=== PATIENT | female | born 1990 | race Caucasian/White ===

== ENCOUNTER 2023-12-21 08:24 | Inpatient (IN) | payer OTHER, SELFPAY ==
[2023-12-21] VITALS (22 sets, daily range): BP systolic 94–132; BP diastolic 55–75; PULSE 54–123; RESP 16–20; TEMP 36.6–37.3; O2SAT 98; BMI 30.2
[2023-12-21 08:11] LABS: Amnisure Rom* POSITIVE
--- NOTE | 2023-12-21 13:28 | P.OBHP_ITS ---
OB - H&P: HPI Labor/Induction History of Present Illness Date Seen: 12/21/23 Chief Complaint: The patient is a 33 year old 1 para 1 at 38+3 weeks gestation by LMP and confirmed with 1st trimester US, who presents with SROM at 0430 this morning. Chief complaint: OB Nonscheduled Narrative: Deann Shore is a 33 year old at 38+3 here with SROM of clear fluid at 0430 this morning. ON presentation to L&D at 0830, she was 1 cm dilated and having mild contractions. She now reports they are stronger and closer together and she is more uncomfortable. She has had an uncomplicated . her GBS is negative, Rh+, rubella immune. She has had anemia during which did not respond to iron infusion, had normal B12 and folic acid levels. last HGB 10.5. History of Present Dating criteria: based on LMP care: good care Ultrasounds: normal 1st trimester US and normal mid trimester US Medical complications: none Labs Blood type: A (+) positive Rubella: immune RPR/VDLR: nonreactive GBS status: negative HBsAG: negative Review of Systems Status of ROS: Reports: 6 or more systems reviewed and unremarkable except as noted in History and below OB - H&P: Exam Physical Exam: Vital signs: Temp Pulse Resp BP 98.4 F 56 L 16 103/66 12/21/23 13:24 12/21/23 12:41 12/21/23 13:24 12/21/23 12:41 Constitutional: Constitutional: no acute distress Routine HEENT Exam: Head: Present atraumatic Eye: Present EOMI and PERRL ENT: Present mucous membranes moist Routine Neck Exam: Neck: Present full ROM Routine Respiratory Exam: Respiratory: Present CTA bilaterally Routine Cardiovascular Exam: Cardiovascular: RRR Comments: no murmur Detailed Labor and Delivery Exam: Patient Gravid: Yes Dilation (cm): 4 Effacement (%): 80 Cervix position: mid Consistency: soft Contraction intensity: Moderate Fetus (Single): Station: 0 Amniotic Membrane Status: SROM Heart Rate Baseline: 140 Monitor Accelerations: Present Monitor Decelerations: None Water/Wastewater Project Manager Variability: Moderate (6-25) Routine Skin Exam: Present intact Routine Neurological Exam: Present alert, oriented X3 and CN II-XII intact OB - Problem Based A/P Additional Plan (1) Term : Status: Acute (2) SROM (spontaneous rupture of membranes): Status: Acute Plan Patient desires water Anticipate Delivery/Labor/Induction Plan Plan: expectant management
[2023-12-21] MEDS: LIDOCAINE 1 % PF 30 ML INJECTION (18:15)
[2023-12-21] MEDS: OXYTOCIN 10 UNIT/ML INJ IM (18:16)
--- NOTE | 2023-12-21 18:44 | W.PM.VAGDEL1 ---
Procedure Procedure Done: Global Delivery monitor: external FHT Route of delivery: (waterbirth) Laceration description: Vaginal - 2nd Degree Delivery repair: Vicryl Estimated blood loss (mL): 425 Anesthesia type: None Disposition: floor Narrative: The patient is a 33 year-old admitted on 12/21/2023 at 38 Weeks, 3 Days gestation for SROM at 0430 on the morning of admission.? Cervical exam on admission was 1 cm/50 % effaced/-1 station with membranes ruptured in vertex presentation.? Contractions were every 5-7 minutes.? heart rate demonstrated baseline 140 bpm with moderate variability, + accelerations, - decelerations; a category 1 tracing.? SROM occurred at 0430 with clear fluid. ? Labor Analgesia:? nitrous ? Pitocin:? post delivery ? Labor onset:? 1500 ? Complete:? 1730 ? Pushing:? 1730 ? heart tones during second stage were presumed category 1, intermittent auscultation due to water . ? At 1753 a viable female infant delivered in vertex OA presentation over intact perineum via spontaneous vaginal delivery.? was placed on maternal abdomen.? Cord was clamped and cut after a 30-60 second delay.? Nose and mouth were bulb suctioned.? weight pending.? 8 at 1 minute and 9 at 5 minutes.? Shoulder dystocia: no.? Nuchal cord: x3. ? Placenta delivered spontaneously and complete at 1803 with a 3 vessel cord. ? Mother and infant were stable after delivery. ? Lacerations:? 2nd degree, vaginal, repaired with 3-0 vicryl suture. ? Blood loss: 425 mL. Blood loss measurement type: EBL ? Sponge and needles counts are correct.
[2023-12-21] MEDS: ACETAMINOPHEN 500 MG TABLET 1000 MG PO (20:50)
[2023-12-21] MEDS: miSOPROStoL 800 MCG/4 TABLET PR (20:51)
[2023-12-22 02:51] VITALS: BP 113/74; PULSE 72; RESP 18; TEMP 36.7; O2SAT 98
[2023-12-22] MEDS: FLUTICASONE PROPIONATE NASAL 1 SPRAY NOSTRIL-B (05:49)
--- NOTE | 2023-12-22 06:34 | PM.OBPNVD1 ---
OB - PN:Subj Subjective Time Seen by Provider: 06:34 Date Seen: 12/22/23 Interval history: pt seen in routine rounds. no concerns. Working on , says right easier then left. +voiding, ambulating, tolerating orals. RN reports lochia as scant. Patient comments OB post-: no complaints status: feeding status: exclusively OB - PN: Obj Exam Physical Exam: Vital signs: Temp Pulse Resp BP Pulse Ox O2 Del Method 98.1 F 72 18 113/74 98 Room Air 12/22/23 02:51 12/22/23 02:51 12/22/23 02:51 12/22/23 02:51 12/22/23 02:51 12/22/23 02:51 Constitutional: Constitutional: no acute distress and cooperative Routine Abdominal Exam: Fundus: Present firm (below umbilicus) OB - PN: Obj Data Labs Labs: Laboratory Results - last 24 hr 12/21/23 07:51 Membrane Rupture POSITIVE OB - PN: A/P Delivery Assessment and Plan (1) Term : Status: Acute (2) SROM (spontaneous rupture of membranes): Status: Resolved Plan Plan: routine care Comments: Doing well. continue work on . will see today. Pt may want to go home tonight if today goes well, will see how today goes with nursing and baby
[2023-12-22 07:08] LABS: Hemoglobin* 10.4 gm/dL (12.0-16.0)
[2023-12-22 07:52] VITALS: BP 109/69; PULSE 68; RESP 18; TEMP 36.7; O2SAT 99
[2023-12-22] MEDS: ACETAMINOPHEN 500 MG TABLET 1000 MG PO ×2 (08:01→17:54)
[2023-12-22] MEDS: DOCUSATE SODIUM 100 MG CAPSULE PO (08:01)
[2023-12-22 13:45] VITALS: BP 100/66; PULSE 68; RESP 16; TEMP 36.7; O2SAT 99
[2023-12-22 17:38] VITALS: BP 103/64; PULSE 75; RESP 16; TEMP 36.8; O2SAT 97
--- NOTE | 2023-12-22 18:05 | PM.OBDSVD1 ---
DS: Providers Provider Time Seen by Provider: 06:34 Date Seen: 12/22/23 Date of admission: 12/21/23 08:24 Primary care physician: Melly Gates MD Admitting Clinician: Melly Gates MD Attending Physician on discharge: Melly Gates MD Date of Discharge: 12/22/23 DS: Diagnosis Discharge Diagnosis (1) Vaginal delivery: Status: Acute (2) Term : Status: Acute Exam Const: Vital Signs, click to edit/add: Vital Signs - 24 hr 12/21/23 18:10 12/21/23 18:11 12/21/23 18:11 Temperature 98.7 F Pulse Rate 81 Pulse Rate [Pulse Oximeter] Respiratory Rate 18 20 Blood Pressure 132/75 Blood Pressure [Le ft Arm] Pulse [facility]xim[facility] 12/21/23 18:26 12/21/23 18:26 12/21/23 18:41 Temperature Pulse Rate 70 86 Pulse Rate [Pulse Oximeter] Respiratory Rate 18 Blood Pressure 110/69 116/58 L Blood Pressure [Le ft Arm] Pulse Oximetry Oxygen Delivery [facility] 12/21/23 18:41 12/21/23 18:56 12/21/23 18:56 Temperature 98.7 F Pulse Rate 85 Pulse Rate [Pulse Oximeter] Respiratory Rate 18 16 Blood Pressure 117/71 Blood Pressure [Le ft Arm] Pulse Oximetry Oxygen Delivery [facility] 12/21/23 18:56 12/21/23 19:11 12/21/23 19:12 Temperature Pulse Rate 123 H Pulse Rate [Pulse Oximeter] Respiratory Rate 18 18 Blood Pressure 114/71 Blood Pressure [Le ft Arm] Pulse Oximetry Oxygen Delivery [facility] 12/21/23 19:26 12/21/23 19:26 12/21/23 19:41 Temperature Pulse Rate 80 73 Pulse Rate [Pulse Oximeter] Respiratory Rate 18 Blood Pressure 113/59 L 115/65 Blood Pressure [Le ft Arm] Pulse Oximetry Oxygen Delivery [facility] 12/21/23 19:41 12/21/23 19:41 12/21/23 19:56 Temperature 98.4 F Pulse Rate 77 Pulse Rate [Pulse Oximeter] Respiratory Rate 16 18 Blood Pressure 105/55 L Blood Pressure [Le ft Arm] Pulse Oximetry Oxygen Delivery [facility] 12/21/23 19:56 12/21/23 20:18 12/21/23 20:19 Temperature Pulse Rate 66 Pulse Rate [Pulse Oximeter] Respiratory Rate 18 18 Blood Pressure 111/59 L Blood Pressure [Le ft Arm] Pulse Oximetry Oxygen Delivery [facility] 12/21/23 23:39 12/22/23 02:51 12/22/23 07:52 Temperature 97.8 F 98.1 F 98.1 F Pulse Rate Pulse Rate [Pulse Oximeter] 99 72 68 Respiratory Rate 20 18 18 Blood Pressure Blood Pressure [Le ft Arm] 94/69 113/74 109/69 Pulse Oximetry 98 98 99 Oxygen Delivery [facility] Room Air Room Air 12/22/23 13:45 12/22/23 17:38 Temperature 98.0 F 98.2 F Pulse Rate Pulse Rate [Pulse Oximeter] 68 75 Respiratory Rate 16 16 Blood Pressure Blood Pressure [Le ft Arm] 100/66 103/64 Pulse Oximetry 99 97 Oxygen Delivery [facility] Room Air Documenting provider has reviewed patient's vital signs: yes Common normals: no apparent distress and healthy appearing : Uterus: U/1 and firm Lochia: scant OB - DS: Summary Hospital Course Hospital Course: The patient is a 33 year old G 1 P 0 at 38 3/7 weeks gestation that was admitted to the Center on 12/21/23 for SROM. She had an uncomplicated vaginal delivery. She delivered a viable female . She is . the patient has done well. Peripartum Data delivery method: Vaginal Laceration description: Perineal - 2nd Degree complications: none Gender: Female Discharge Plan: Home Time Spent with Patient Time attestation: Total time spent providing and/or coordinating discharge services: Discharge Plan Discharge Disposition: Home, Self-Care Date of Admission: 12/21/23 08:24 Primary Care Provider: Melly Gates Condition: Stable Anticipated Discharge Date/Time: 12/22/23 18:00 Discharge Medications: New acetaminophen 500 mg Tablet 1,000 mg PO Q6H PRNQty: 30 0RF docusate sodium 100 mg Capsule 100 mg PO DAILY Qty: 30 0RF ibuprofen 600 mg Tablet 600 mg PO Q6H PRNQty: 30 0RF fluticasone propionate 50 mcg/actuation [place],Suspension 1 spray intranasal BID Qty: 1 0RF cholecalciferol (vitamin D3) [Vitamin D3] 50 mcg (2,000 unit) tablet 100 mcg PO DAILY Qty: 180 3RF Discharge Orders: Discharge Order (Routine); Ordered 12/22/23 Ordered By: Pam Currie Patient Education: OB Vaginal/Breast Feeding Activity Detail: pelvic rest 6 weeks Discharge Diet: Regular Follow Up Appointments: Melly Gates MD [Primary Care Provider] - (Make 6wk visit) [facility]
[2023-12-22 19:45] VITALS: BP 120/80; PULSE 75; RESP 14; TEMP 37.1; O2SAT 97
[2023-12-24 04:17] LABS: Rapid Plasma Reagin (RPR) Non Reactive (Non Reactive)
== END 2023-12-22 22:07 | disposition home or self-care (01) | DRG 807 ==
LOC: OB CLI 08:25 → OB 08:25
PROVIDERS: Admitting Provider Family Medicine; PCP Family Medicine; Visit Provider Family Medicine
DX: O70.1 Second degree perineal laceration during delivery (principal); Z37.0 Single live birth; Z3A.38 38 weeks gestation of pregnancy
CPT/HCPCS: 36415; 76815; 84112; 85018; 86592; A9270; J2001; J2590

== ENCOUNTER 2023-12-27 08:38 | Outpatient (CLI) | payer OTHER, SELFPAY ==
--- NOTE | 2023-12-27 17:00 | P.LACCB_ITS ---
Consult Note - Mom Date of Visit Date of visit: 12/27/23 territory sales consultant: Sirisha Doyle Visit Code: Visit Patient's Information Phone number: [phone] : 1 Para: 1 Allergies minocycline Allergy (Verified 12/21/23 19:34) Arthralgia sulfamethoxazole [From Bactrim] Allergy (Verified 12/21/23 19:34) Hives trimethoprim [From Bactrim] Allergy (Verified 12/21/23 19:34) Hives Mother's Medical History: Medical History (Updated 12/30/23 @ 00:00 by Background Daemon) Delivery Information Delivery type: Vaginal Weeks Gestation: 38.3 Gestational Age: AGA Weight: 3.06 kg Discharge Weight: 3.06 kg Baby's Information Baby's Age at Visit: 6 days Baby's Provider or Clinic: Dr. Gates Jaundice: No Reason for Consult Reason for Consult: concern for transfer, no milk on the right side Past Experience Past Experience: No Current Frequency of Day Feedings: about every 2 - 3 hours around the clock Both Breasts: Yes (mom offers the right, but states baby gets frustrated) Suck: not aggressive Latch: fairly wide Length of Time: 30 - 40 minutes Pumping Pumping: Yes (on the right side) Quantity Pumped: drops Supplementing EMB Supplement: No Formula Supplement: No Baby Elimination Number of Wet Diapers a Day: 5 - 7 Number of BM a Day: 3 - 4, seedy and yellow Onsite Pre-Feed weight: 2.858 kg Post-Feed weight: 2.888 kg Milk Transferred (mL): 30 Assessments/Interventions Assessments/Interventions: Met with mom and this now 6 day old ex- term AGA baby for consult. Mom reports in the hospital, baby was nursing well on the right side and that side seemed to have a better supply of colostrum. She had more trouble latching baby to the left side where the nipple was inverted. Over the past few days her right breast has stopped producing and baby has actually pulled the left nipple out and prefers that side. Baby is nursing every 2 - 3 hours and mom starts on the left, then offers the right but baby quickly becomes frustrated. Baby isn't very aggressive on the left so mom really has to work to keep her actively suckling and feedings are lasting 30 - 40 minutes. Mom isn't pumping but will put her [place] on the right while she nurses on the left. States this seems to help stimulate the left but she only gets a few drops from the right. Breasts are not symmetrical with the right one being smaller than the left. Both breasts have rounded lower quadrants and the intramammary distance is < 1.5 inches. Mom does report breast changes during , no significant medical history. The right nipple is everted and doesn't flatten or retract on compression. The left nipple is also everted now but has Stage II damage to the tip, mom has been using a nipple shield to protect it when she's not nursing. Baby has gained 12 grams/day since her visit with PCP on 12/25/23 and she's now 7% below BW at 6 DOL. POC deny any caput/cepalohematoma and think she has equal ROM when turning her head and moving her extremities. Baby?s palate is WNL. Her upper frenulum appears to be tight as the gums theo when the lip is flanged. She has a strong suck on a finger but the tongue doesn?t easily extend over the gum line and often retracts behind the gum line. There is fairly good lateralization. The lower frenulum appears to be WNL. Mom latched baby in the cross cradle hold on the left side and the latch appeared wide. Mom was comfortable after the first few seconds. Baby needed a lot of stimulation to continue suckling and even with mom doing a good job of bugging her she never got into a consistent, rhythmic suckling pattern for more than 15 ? 20 seconds. After about 15 minutes mom removed her (the nipple was pinched). Before latching her to the right side, we did about two minutes of hand expression, but were only able to express a few drops of colostrum. Mom latched baby to that side and again the latch appeared wide and mom was comfortable, but baby was even less aggressive on this side and after about 5 minutes she started to get sleepy. She was weighed and had transferred 26 ml. Baby was fussy so mom offered the left side again but when baby is with mom she?s comfortable and gets sleepy. After a few minutes baby was weighed and had transferred 4 ml for a total of 30 ml. Mom was measured and a flange size suggested. She has a new Spectra pump and is using it correctly. Dad was shown the tug of war exercise. Plan: 1. Continue to nurse ALD or at least every three hours, offering both sides and working to keep baby awake and actively suckling. Suggested she keep the feedings to 20 ? 30 minutes total. 2. Dad will supplement baby with .5 ? 1 oz EBM/formula after every feeding. 3. Mom will start pumping after every daytime feeding for 10 ? 15 minutes. Suggested she order smaller flanges. 4. Encouraged dad to try the tug of war exercise 4 ? 5 times/day or with daytime diaper changes. 5. Mom was encouraged to use her silverettes or the breast shells for the next few days to see if this helped to heal her nipples. Will f/u with her by phone to see if there?s been any improvement. 6. Baby has f/u with PCP next week for a 2 week WCC. Will f/u by phone on 01/02 to see how things are going. Meds Home Medications and Allergies Allergies Allergy/AdvReac Type Severity Reaction Status Date / Time minocycline Allergy Arthralgia Verified 12/21/23 19:34 sulfamethoxazole Allergy Hives Verified 12/21/23 19:34 [From Bactrim] trimethoprim [From Bactrim] Allergy Hives Verified 12/21/23 19:34
== END 2023-12-27 08:39 | disposition home or self-care (01) ==
PROVIDERS: PCP Family Medicine; Visit Provider Obstetrics & Gynecology
DX: P92.5 Neonatal difficulty in feeding at breast (principal)
CPT/HCPCS: G0463